=== PATIENT | female | born 1995 ===

== ENCOUNTER 2016-07-11 09:48 | Emergency (ER) | payer BC ==
[2016-07-11 09:50] VITALS: BMI 26.6
[2016-07-11 10:05] VITALS: O2SAT 98
--- NOTE | 2016-07-11 10:49 | ED PDOC ---
Arrival/HPI - General Chief Complaint: Female Genitourinary Time Seen by Provider: 07/11/16 10:06 Historian: Patient - History of Present Illness Narrative History of Present Illness (Text): 07/11/16 10:46 Patient complains of a painful mass of gradually increasing size of the L labia , states that she has had a cyst there for over 1 year and recently it became infected. Of note, patient is s/p 1.5 months ago with no complications, is not . Otherwise: (-) foreign body, (-) fever, (-) chills. (-) recent antibiotic use. Past Medical History - Provider Review Nursing Documentation Reviewed: Yes - Infectious Disease Hx of Infectious Diseases: None - Past Medical History Past Medical History: No Previous - Psychiatric Hx Depression: No Hx Emotional Abuse: No Hx Physical Abuse: No Hx Substance Use: No - Past Surgical History Past Surgical History: No Previous - Anesthesia Hx Anesthesia: No Hx Anesthesia Reactions: No Hx Malignant Hyperthermia: No - Suicidal Assessment Feels Threatened In Home Enviroment: No Family/Social History - Physician Review Nursing Documentation Reviewed: Yes Family/Social History: No Known Family HX Smoking Status: Never Smoked Hx Alcohol Use: No Hx Substance Use: No Allergies/Home Meds Allergies/Adverse Reactions: Allergies No Known Allergies Allergy (Verified 07/11/16 10:00) Review of Systems - Review of Systems Constitutional: Normal. absent: Fatigue, Weight Change, Fevers Gastrointestinal: Normal. absent: Abdominal Pain, Stool Changes Genitourinary Female: Normal. absent: Dysuria, Frequency, Hematuria Skin: Normal, Other (cyst to the L labia x 1 year). absent: Rash, Pruritis, Skin Lesions Physical Exam - Physical Exam Narrative Physical Exam (Text): 07/11/16 10:48 GENERAL APPEARANCE: Patient is awake, alert, oriented x 3, in mild painful distress. Skin: warm and dry, no rash. Pulmonary: lungs clear, no rhonchi, no wheezing. Cardiac: regular rate and rhythm, no murmur, no gallop. Abdomen: soft, nontender. : Normal external genitalia, (+) 2x2 cm erythematous, tender fluctuant mass to the L labia majora. EDGAR Mejia was present during the entire exam. Extremities: no deformity, full range of motion, no tenderness. Vital Signs Temp Pulse Resp BP Pulse Ox 07/11/16 09:52 97.9 F 75 20 113/69 98 Medical Decision Making ED Course and Treatment: 07/11/16 10:49 20 yo F presents with an abscess to the L labia. Prior to procedure "time out" was called in order to confirm the correct patient and procedure. Through aseptic technique, local anesthesia was administered to abscess, incision and drainage of abscess was performed by PA which produced purulent material. Wound packing was not inserted to the wound due to it's small size. Clean dressing was applied. Medicated with tdap IM, naprosyn PO, bactrim ds PO and keflex PO. Based on history, exam and diagnostic results plan will be for outpatient follow up. Patient states she fully agrees with and understands discharge instructions. States that she agrees with the plan and disposition. Verbalized and repeated discharge instructions and plan. I have given the patient opportunity to ask any additional questions. Follow up with primary care physician in 1-2 days without fail. Advised to take medication as prescribed. Return to the emergency room at any time for any new or worsening symptoms. - PA / [employer] / Resident Statement / has reviewed & agrees with the documentation as recorded. Disposition/Present on Arrival - Present on Arrival Any Indicators Present on Arrival: No History of DVT/PE: No History of Uncontrolled Diabetes: No Urinary Catheter: No History of Decub. Ulcer: No History Surgical Site Infection Following: None - Disposition Have Diagnosis and Disposition been Completed?: Yes Diagnosis: Abscess Disposition: HOME/ ROUTINE Disposition Time: 10:51 Patient Plan: Discharge Condition: GOOD Discharge Instructions (ExitCare): Abscess (ED), Acute Wound Care (ED) Print Language: AMHARIC Additional Instructions: Thank you for letting us take care of you today. You were treated for abscess. The emergency medical care you received today was directed at your acute symptoms. If you were prescribed any medication, please fill it and take as directed. It may take several days for your symptoms to resolve. Return to the Emergency Department if your symptoms worsen, do not improve, or if you have any other problems. Please contact your doctor in 2 days for re-evaluation and follow up / or call one of the physicians/clinics you have been referred to that are listed on the Patient Visit Information form that is included in your discharge packet. Bring any paperwork you were given at discharge with you along with any medications you are taking to your follow up visit. Our treatment cannot replace ongoing medical care by a primary care provider (PCP) outside of the emergency department. Thank you for allowing the [facility] team to be part of your care today. Prescriptions: Sulfamethoxazole/Trimethoprim [Bactrim DS 800 mg-160 mg] 2 tab PO BID #28 tab Cephalexin [Keflex] 500 mg PO Q6 #28 capsule Naproxen 500 mg PO BID #30 tab Referrals: PCP,NO [Primary Care Provider] - Follow up with primary [facility] [place] [Outside] - Follow up with primary
[2016-07-11] MEDS ORDERED: Naproxen 550 mg Tab PO STA (10:56)
[2016-07-11] MEDS ORDERED: TDAP Vaccine 0.5 mL Syr IM ONE (10:56)
[2016-07-11] MEDS ORDERED: Tmp-Smz 800 mg-160 mg DS Tab PO STA (10:56)
[2016-07-11 11:13] VITALS: BP 115/67; PULSE 71; RESP 18; TEMP 98
== END 2016-07-11 11:23 | disposition home or self-care (01) ==
LOC: ED 09:48
DX: N76.4 Abscess of vulva (principal); Z23 Encounter for immunization